=== PATIENT | male | born 1995 | race Caucasian/White ===

== ENCOUNTER 2020-10-19 12:05 | Emergency (ER) | payer OTHER ==
[2020-10-19 12:51] LABS: BASOPHIL 0.5 % (0-2); EOSINOPHIL 0.6 % (0-5); HCT 46.7 % (42.0-52.0); HGB 16.6 g/dl (13.2-18.0); LYMPHOCYTE 27.1 % (15-48); MCHC 35.5 g/dL (32.0-36.0); MCV 84.3 fL (78.0-100.0); MONOCYTE 7.8 % (0-12); MPV 10.3 fL (6.0-9.5); NEUTROPHIL 63.7 % (41-80); NRBC 0; PLT 213 K/uL (150-400); RBC 5.54 M/uL (4.70-6.00); RDW 11.4 % (11.5-14.0); WBC 6.3 K/uL (4.0-10.5)
[2020-10-19 12:55] LABS: AMPHETAMINES NEGATIVE (NEGATIVE); BARBITURATES NEGATIVE (NEGATIVE); ECSTASY (MDMA) NEGATIVE (NEGATIVE); MARIJUANA (THC) NEGATIVE (NEGATIVE); METHADONE NEGATIVE (NEGATIVE); OPIATES NEGATIVE (NEGATIVE); OXYCODONE NEGATIVE (NEGATIVE)
[2020-10-19 13:22] LABS: ALBUMIN 4.7 g/dL (3.4-5.0); ALKALINE PHOSHATASE 81 U/L (46-116); ALT 41 U/L (16-63); AST 23 U/L (15-37); BILIRUBIN - TOTAL 0.9 mg/dL (0.2-1.0); BUN 15 mg/dL (7-18); BUN/CREAT RATIO (CALC) 17.9 RATIO; CHLORIDE 102 mmol/L (98-107); CO2 (BICARBONATE) 29 mmol/L (21-32); CREATININE 0.84 mg/dL (0.67-1.17); GLOBULIN (CALCULATION) 3.8 g/dL; GLUCOSE 99 mg/dL (74-106); POTASSIUM 3.9 mmol/L (3.5-5.1); TOTAL PROTEIN 8.5 g/dL (6.4-8.2)
[2020-10-19 13:23] LABS: ACETAMINOPHEN (TYLENOL) < 2.0 ug/mL (10.0-30.0)
== END 2020-10-19 16:45 | disposition other institution (70) ==
LOC: FER 12:05
PROVIDERS: Emergency Medicine
DX: F32.9 Major depressive disorder, single episode, unspecified (principal); U07.1 COVID-19
CPT/HCPCS: 36415; 80053; 80305; 85025; 99285; G0480; U0002